=== PATIENT | female | born 1955 | race Caucasian/White ===

== ENCOUNTER 2023-05-03 18:29 | Inpatient (IN) | payer MEDICARE, OTHER ==
[~2023-05-03 18:29] MED LIST: Iopamidol-370 76% 500 ML MDV (1 ML CHARGE) ONE
[2023-05-03] MEDS ORDERED: Rocuronium Bromide 10 MG/ML (10ML VIAL) ONE (18:33)
[2023-05-03] MEDS ORDERED: CEFAZOLIN 2 GM VIAL ONE (18:39)
[2023-05-03 18:47] LABS: #Monocytes 0.6 thou/uL (0.11-0.59); #Neutrophils 6.6 thou/uL (1.40-6.50); %Basophils 0.1 % (0.0-1.0); %Lymphocytes 10.4 % (21.0-51.0); %Monocytes 7.1 % (0.0-10.0); Hematocrit 29.5 % (36.0-47.0); Hemoglobin 10.3 g/dL (12.0-16.0); Mean Corpuscular HGB CONC 34.9 g/dL (32.0-36.0); Mean Corpuscular Volume 71.6 fl (78.0-98.0); Mean Platelet Volume 8.5 fL (7.4-10.4); Platelet Count 314 10x3/uL (130-400); Red Blood Cell (RBC) Count 4.12 mill/uL (4.20-5.40)
[2023-05-03 18:58] LABS: INR-International Normal Ratio 0.9; PTT 27.3 sec (22.9-36.1); Prothrombin Time 12.5 sec (12.0-14.7)
[2023-05-03] MEDS ORDERED: Insulin Regular 300 UNITS/3 ML VIAL SC PRN (19:03)
[2023-05-03] MEDS ORDERED: Glucagon 1 MG/ML KIT IM PRN (19:03)
[2023-05-03] MEDS ORDERED: Ipratropium/Albuterol 3 ML NEB NEB PRN (19:03)
[2023-05-03] MEDS ORDERED: Ondansetron PF 4 MG/2 ML Vial IVP PRN (19:03)
[2023-05-03] MEDS ORDERED: hydrALAZINE 20 MG/ML VIAL SLOW IVP PRN (19:03)
[2023-05-03] MEDS ORDERED: Dextrose 50% Abboject 50 ML SYRINGE SLOW IVP PRN (19:03)
[2023-05-03] MEDS ORDERED: Dextrose 5% in Water 1,000 ML IV PRN (19:03)
[2023-05-03] MEDS ORDERED: Sodium Chloride 0.9% 1,000 ML IV SCH ×2 (19:15→22:45)
[2023-05-03 19:16] LABS: ALT (SGPT) 37 U/L (8-55); AST (SGOT) 44 U/L (5-34); Albumin 4.1 g/dL (3.4-4.8); Alkaline Phosphatase 55 U/L (40-110); Anion Gap 14 mmol/L (10-20); BUN (Urea Nitrogen) 8 mg/dL (9.8-20.1); Bilirubin, Total 0.4 mg/dL (0.2-1.2); Calc. Creatinine Clearance 0 mL/min (70-130); Calcium 8.6 mg/dL (7.8-10.44); Carbon Dioxide 23 mmol/L (23-31); Chloride 73 mmol/L (98-107); Estimated GFR 95; Globulin 3.2 g/dL (2.4-3.5); Glucose 162 mg/dL (80-115); Potassium 3.2 mmol/L (3.5-5.1); Protein, Total 7.3 g/dL (5.8-8.1)
[2023-05-03] MEDS ORDERED: Morphine 2 MG/ML VIAL SLOW IVP PRN ×2 (19:16→22:15)
[2023-05-03 19:17] LABS: Bacteria/HPF None Seen HPF (None Seen); Bilirubin Negative (Negative); Blood, Urine Negative (Negative); CAUTI Indications for Culture Alt mental st,lethar; Clarity Clear (Clear); Glucose, Urine (Dipstick) Normal (Negative); Ketone, Urine 10 mg/dL (Negative); Leukocyte Negative Leu/uL (Negative); Nitrite Negative (Negative); Protein, Urine (Dipstick) Negative (Neg-Trace); RBC/HPF 0-3 HPF (0-3); Squamous Epithelial None Seen HPF (0-3); Urobilinogen Normal mg/dL (Less than 2); WBC/HPF 0-3 HPF (0-3)
[2023-05-03 19:19] LABS: Urine Culture Reflex No No
[2023-05-03 19:20] LABS: Sodium 107 mmol/L (136-145)
[2023-05-03 19:23] LABS: Anisocytosis SLIGHT = 6-15 cells HPF (0-5); Burr Cells SLIGHT = 2-5 cells HPF (0-1); CellaVision Operator ID LAB.MJL; Hypochromia SLIGHT = 6-15 cells HPF (0-5); Microcytosis SLIGHT = 6-15 cells HPF (0-5); Ovalocytes SLIGHT = 2-5 cells HPF (0-1); Platelet Adequacy Comment Platelets Normal; Poikilocytosis SLIGHT = 6-15 cells HPF (0-5); Polychromasia SLIGHT = 2-3 cells HPF (0-2)
[2023-05-03] MEDS ORDERED: levETIRAcetam 500 MG/5 ML VIAL ONE (19:46)
[2023-05-03] MEDS ORDERED: Propofol 1,000 MG/100 ML VIAL IV ONE (19:54)
[2023-05-03 20:18] LABS: ALT (SGPT) 37 U/L (8-55); AST (SGOT) 44 U/L (5-34); Albumin 3.9 g/dL (3.4-4.8); Alkaline Phosphatase 52 U/L (40-110); Anion Gap 18 mmol/L (10-20); BUN (Urea Nitrogen) 7 mg/dL (9.8-20.1); Bilirubin, Total 0.5 mg/dL (0.2-1.2); Calc. Creatinine Clearance 0 mL/min (70-130); Calcium 8.6 mg/dL (7.8-10.44); Carbon Dioxide 21 mmol/L (23-31); Chloride 71 mmol/L (98-107); Estimated GFR 90; Glucose 160 mg/dL (80-115); Potassium 2.7 mmol/L (3.5-5.1); Protein, Total 6.9 g/dL (5.8-8.1)
[2023-05-03 20:23] LABS: Sodium 107 mmol/L (136-145)
[2023-05-03] MEDS ORDERED: Magnesium 2 GM/50 ML(in water) 2 GM in Premix Bag 1 BAG IVPB SCH (20:30)
[2023-05-03] MEDS ORDERED: Sodium Chloride 3% 250 ML IVPB SCH (20:45)
[2023-05-03 21:54] LABS: BUN (Urea Nitrogen) 6 mg/dL (9.8-20.1); Calc. Creatinine Clearance 0 mL/min (70-130); Calcium 6.9 mg/dL (7.8-10.44); Carbon Dioxide 18 mmol/L (23-31); Chloride 67 mmol/L (98-107); Estimated GFR 100; Glucose 129 mg/dL (80-115); Potassium 2.9 mmol/L (3.5-5.1); Sodium Less than 100 mmol/L (136-145)
[2023-05-03] MEDS ORDERED: Atropine Sulfate 1 mg/10 ml Syringe ONE (22:00)
[2023-05-03] MEDS ORDERED: CEFAZOLIN 2 GM in Sodium Chloride 0.9% 100 ML IVPB SCH (22:00)
[2023-05-03] MEDS ORDERED: CEFAZOLIN 1 GM VIAL SLOW IVP SCH (22:00)
[2023-05-03] MEDS ORDERED: Propofol BOLUS 1,000 MG/100 ML VIAL IV PRN (22:15)
[2023-05-03] MEDS ORDERED: DISCONTINUE PREVIOUS NARCOTIC PAIN MEDICATIONS AND BENZODIAZEPINES FS SCH (22:15)
[2023-05-03] MEDS ORDERED: Fentanyl BOLUS 250 ML IVPB PRN (22:15)
[2023-05-03] MEDS ORDERED: Propofol 1,000 MG/100 ML VIAL IV PRN (22:15)
[2023-05-03] MEDS ORDERED: Calcium Chloride 1 GM/10 ML Abboject SYRINGE ONE (22:17)
[2023-05-03] MEDS: Potassium Chloride 20 MEQ in Premix Bag 1 BAG IVPB SCH ×2 (22:43→23:43)
[2023-05-03] MEDS ORDERED: Sodium Chloride 3% 500 ML IVPB SCH (22:45)
[2023-05-03 22:56] LABS: Actual Bicarbonate (HCO3a) 21.9 mEq/L (22-28); Base Excess (BEa) -1.8 mEq/L (-2.0 to +3.0); CO2 Tension 33.2 mmHg (35.0-45.0); Calcium, Ionized (arterial) 1.38 mmol/L (1.12-1.30); Hematocrit-ABG 29 % (36.0-47.0); O2 Tension (PaO2), arterial 98.9 mmHg (> 80.0); Potassium - ABG Lab 2.86 mmol/L (3.70-5.30); pH, Arterial 7.437 (7.35-7.45)
[2023-05-03 22:57] LABS: Puncture Site RRA
[2023-05-03] MEDS ORDERED: Albumin 5% 250 ML ONE (22:59)
[2023-05-03] MEDS ORDERED: Calcium Chloride 1 GM/10 ML Abboject SYRINGE IVP SCH (23:00)
[2023-05-03 23:15] LABS: Phosphorus 2.2 mg/dL (2.3-4.7)
[2023-05-03 23:17] LABS: Acetaminophen Less than 10 mcg/mL (10.0-30.0); Alcohol Less than 10.0 mg/dL (Less than 10); Magnesium 1.4 mg/dL (1.6-2.6); Salicylate Less than 8.0 mg/dL (15.0-30.0)
[2023-05-03] MEDS ORDERED: Electrolyte Replacement Protocol 1 EACH FS PRN (23:23)
[2023-05-03 23:24] LABS: Anion Gap 16 mmol/L (10-20); BUN (Urea Nitrogen) 8 mg/dL (9.8-20.1); Calc. Creatinine Clearance 98 mL/min (70-130); Calcium 9.2 mg/dL (7.8-10.44); Carbon Dioxide 22 mmol/L (23-31); Chloride 76 mmol/L (98-107); Estimated GFR 96; Glucose 135 mg/dL (80-115); Potassium 2.8 mmol/L (3.5-5.1); Sodium 111 mmol/L (136-145)
[2023-05-03] MEDS: Famotidine/PF 20 mg/2ml Vial SLOW IVP SCH (23:26)
[2023-05-03] MEDS ORDERED: Magnesium Sulfate In Water 4 GM in Premix Bag 1 BAG IVPB SCH (23:59)
[2023-05-04 00:26] LABS: Amphetamine Not Detected (NotDetected); Barbiturates Screen Not Detected (NotDetected); Benzodiazepine Screen Not Detected (NotDetected); Cocaine Metabolite Screen Not Detected (NotDetected); Methadone Not Detected (NotDetected); Methamphetamine Not Detected (NotDetected); Opiate Screen Not Detected (NotDetected); Oxycodone Screen Not Detected (NotDetected); Phencyclidine (PCP) Not Detected (NotDetected); THC/Cannabinoid Screen Not Detected (NotDetected); Tricyclic Screen Not Detected (NotDetected)
[2023-05-04 01:35] LABS: Anion Gap 13 mmol/L (10-20); BUN (Urea Nitrogen) 7 mg/dL (9.8-20.1); Calc. Creatinine Clearance 105 mL/min (70-130); Calcium 9.4 mg/dL (7.8-10.44); Carbon Dioxide 22 mmol/L (23-31); Chloride 80 mmol/L (98-107); Estimated GFR 97; Glucose 124 mg/dL (80-115); Potassium 2.7 mmol/L (3.5-5.1)
[2023-05-04 01:38] LABS: Sodium 112 mmol/L (136-145)
[2023-05-04] MEDS: Potassium Chloride 20 MEQ in Premix Bag 1 BAG IVPB SCH ×2 (02:27→04:50)
[2023-05-04 03:34] LABS: #Neutrophils 7.5 thou/uL (1.40-6.50); %Basophils 0.1 % (0.0-1.0); %Lymphocytes 7.1 % (21.0-51.0); %Monocytes 10.5 % (0.0-10.0); %Neutrophils 82.1 % (42.0-75.0); Hematocrit 26.3 % (36.0-47.0); Hemoglobin 8.8 g/dL (12.0-16.0); Mean Corpuscular HGB CONC 33.5 g/dL (32.0-36.0); Mean Corpuscular Hemoglobin 24.9 pg (27.0-31.0); Mean Platelet Volume 8.6 fL (7.4-10.4); RBC Distribution Width 15.3 % (11.5-14.5); Red Blood Cell (RBC) Count 3.53 mill/uL (4.20-5.40); White Blood Cell (WBC) Count 9.1 10x3/uL (4.8-10.8)
[2023-05-04 03:44] LABS: Mean Corpuscular Volume 74.5 fl (78.0-98.0); Platelet Count 205 10x3/uL (130-400)
[2023-05-04 03:48] LABS: PTT 28.4 sec (22.9-36.1); Prothrombin Time 13.3 sec (12.0-14.7)
[2023-05-04 03:53] LABS: Anion Gap 15 mmol/L (10-20); BUN (Urea Nitrogen) 6 mg/dL (9.8-20.1); Calc. Creatinine Clearance 110 mL/min (70-130); Calcium 8.9 mg/dL (7.8-10.44); Carbon Dioxide 20 mmol/L (23-31); Chloride 80 mmol/L (98-107); Estimated GFR 98; Glucose 122 mg/dL (80-115); Magnesium 2.6 mg/dL (1.6-2.6)
[2023-05-04 03:54] LABS: Anion Gap 13 mmol/L (10-20); BUN (Urea Nitrogen) 7 mg/dL (9.8-20.1); Calc. Creatinine Clearance 103 mL/min (70-130); Calcium 8.9 mg/dL (7.8-10.44); Carbon Dioxide 22 mmol/L (23-31); Chloride 81 mmol/L (98-107); Estimated GFR 97; Glucose 124 mg/dL (80-115); Potassium 2.9 mmol/L (3.5-5.1)
[2023-05-04 04:04] LABS: Sodium 112 mmol/L (136-145); Sodium 113 mmol/L (136-145)
[2023-05-04] MEDS: CEFAZOLIN 2 GM in Sodium Chloride 0.9% 100 ML IVPB SCH ×3 (04:51→19:58)
[2023-05-04 06:45] LABS: Anion Gap 14 mmol/L (10-20); BUN (Urea Nitrogen) 7 mg/dL (9.8-20.1); Calc. Creatinine Clearance 97 mL/min (70-130); Calcium 8.7 mg/dL (7.8-10.44); Carbon Dioxide 21 mmol/L (23-31); Chloride 83 mmol/L (98-107); Estimated GFR 95; Glucose 105 mg/dL (80-115); Potassium 3.6 mmol/L (3.5-5.1)
[2023-05-04] MEDS ORDERED: Sodium Chloride 3% 500 ML IVPB SCH ×2 (06:45→07:30)
[2023-05-04 07:03] LABS: Sodium 114 mmol/L (136-145)
[2023-05-04] MEDS ORDERED: Hydrocortisone Sod Succ/PF 100 mg/2 ml Vial IVP SCH (07:15)
[2023-05-04 09:23] LABS: Chloride 87 mmol/L (98-107); Potassium 4.3 mmol/L (3.5-5.1)
[2023-05-04 09:24] LABS: Calcium 8.5 mg/dL (7.8-10.44); Glucose 102 mg/dL (80-115)
[2023-05-04 09:26] LABS: Anion Gap 13 mmol/L (10-20); Carbon Dioxide 21 mmol/L (23-31)
[2023-05-04 09:28] LABS: Calc. Creatinine Clearance 97 mL/min (70-130); Estimated GFR 95
[2023-05-04 09:29] LABS: BUN (Urea Nitrogen) 7 mg/dL (9.8-20.1)
[2023-05-04 09:36] LABS: Sodium 117 mmol/L (136-145)
[2023-05-04] MEDS: Famotidine/PF 20 mg/2ml Vial SLOW IVP SCH ×2 (09:42→19:59)
[2023-05-04] MEDS: levETIRAcetam 500 MG/5 ML VIAL SLOW IVP SCH ×2 (09:42→19:59)
[2023-05-04] MEDS ORDERED: Fentanyl CADD 100 ML ONE (10:26)
[2023-05-04] MEDS: Fentanyl CADD 100 ML IV SCH (10:30)
[2023-05-04] MEDS: Acetaminophen 650 MG/20.3 ML UDCUP PO SCH ×2 (11:57→17:22)
[2023-05-04 12:00] LABS: Anion Gap 13 mmol/L (10-20); BUN (Urea Nitrogen) 7 mg/dL (9.8-20.1); Calc. Creatinine Clearance 98 mL/min (70-130); Calcium 8.5 mg/dL (7.8-10.44); Carbon Dioxide 21 mmol/L (23-31); Chloride 88 mmol/L (98-107); Estimated GFR 96; Glucose 102 mg/dL (80-115); Potassium 4.2 mmol/L (3.5-5.1)
[2023-05-04 12:15] LABS: Sodium 118 mmol/L (136-145)
[2023-05-04 12:20] LABS: SARS-CoV-2 NAA Rapid Test DETECTED (NotDetected)
[2023-05-04] MEDS ORDERED: NOREPINEPHRINE 8 MG/250 ML-D5W 250 ML ONE (14:31)
[2023-05-04] MEDS ORDERED: Sodium Chloride 0.9% 1,000 ML IV SCH (14:45)
[2023-05-04 15:36] LABS: Actual Bicarbonate (HCO3a) 22.4 mEq/L (22-28); Base Excess (BEa) -1.8 mEq/L (-2.0 to +3.0); CO2 Tension 35.6 mmHg (35.0-45.0); Calcium, Ionized (arterial) 1.09 mmol/L (1.12-1.30); Carboxyhemoglobin (COHb) 0.4 gm% (0.0-3.0); Hematocrit-ABG 27 % (36.0-47.0); Hemoglobin (Hb) 9.2 g/dL (12.0-16.0); O2 Tension (PaO2), arterial 109.7 mmHg (> 80.0); Potassium - ABG Lab 3.17 mmol/L (3.70-5.30); Puncture Site RRA; pH, Arterial 7.416 (7.35-7.45)
[2023-05-04] MEDS ORDERED: NOREPINEPHRINE 8 MG/250 ML-D5W 250 ML IVPB SCH (16:15)
[2023-05-04 16:57] LABS: #Monocytes 1.2 thou/uL (0.11-0.59); #Neutrophils 8.3 thou/uL (1.40-6.50); %Monocytes 12.1 % (0.0-10.0); %Neutrophils 84.6 % (42.0-75.0); Hematocrit 24.9 % (36.0-47.0); Hemoglobin 8.4 g/dL (12.0-16.0); Mean Corpuscular HGB CONC 33.7 g/dL (32.0-36.0); Mean Corpuscular Volume 74.1 fl (78.0-98.0); Mean Platelet Volume 8.8 fL (7.4-10.4); Platelet Count 243 10x3/uL (130-400); RBC Distribution Width 15.9 % (11.5-14.5); Red Blood Cell (RBC) Count 3.36 mill/uL (4.20-5.40); White Blood Cell (WBC) Count 9.8 10x3/uL (4.8-10.8)
[2023-05-04] MEDS: Hydrocortisone Sod Succ/PF 100 mg/2 ml Vial IVP SCH (17:23)
[2023-05-04 17:26] LABS: Anion Gap 13 mmol/L (10-20); BUN (Urea Nitrogen) 6 mg/dL (9.8-20.1); Calc. Creatinine Clearance 94 mL/min (70-130); Calcium 8.2 mg/dL (7.8-10.44); Carbon Dioxide 21 mmol/L (23-31); Chloride 92 mmol/L (98-107); Estimated GFR 95; Glucose 148 mg/dL (80-115); Magnesium 2.1 mg/dL (1.6-2.6); Potassium 3.3 mmol/L (3.5-5.1); Sodium 123 mmol/L (136-145)
[2023-05-04 17:35] LABS: Phosphorus 1.5 mg/dL (2.3-4.7)
[2023-05-04] MEDS ORDERED: Calcium Chloride 1 GM/10 ML Abboject SYRINGE IVP SCH (17:45)
[2023-05-04] MEDS ORDERED: Potassium Phosphate 30 MMOL in Sodium Chloride 0.9% 250 ML 250 ML IVPB SCH (17:45)
[2023-05-04] MEDS: Sodium Chloride 0.9% 1,000 ML IV SCH (17:49)
[2023-05-04] MEDS: Senokot S 8.6-50 MG TAB PO SCH (19:59)
[2023-05-04 20:53] LABS: Sodium 123 mmol/L (136-145)
[2023-05-04 23:27] LABS: Anion Gap 13 mmol/L (10-20); BUN (Urea Nitrogen) 5 mg/dL (9.8-20.1); Calc. Creatinine Clearance 94 mL/min (70-130); Carbon Dioxide 21 mmol/L (23-31); Chloride 96 mmol/L (98-107); Estimated GFR 95; Glucose 140 mg/dL (80-115); Potassium 3.9 mmol/L (3.5-5.1); Sodium 126 mmol/L (136-145)
[2023-05-04] MEDS ORDERED: Dextrose 5% in Water 1,000 ML IV SCH (23:45)
[2023-05-05] MEDS: Acetaminophen 650 MG/20.3 ML UDCUP PO SCH ×4 (00:36→17:37)
[2023-05-05] MEDS: Hydrocortisone Sod Succ/PF 100 mg/2 ml Vial IVP SCH ×2 (00:37→11:58)
[2023-05-05] MEDS: Sodium Chloride 0.9% 1,000 ML IV SCH ×4 (01:02→22:27)
[2023-05-05 02:39] LABS: Anion Gap 12 mmol/L (10-20); BUN (Urea Nitrogen) 5 mg/dL (9.8-20.1); Calc. Creatinine Clearance 101 mL/min (70-130); Calcium 8.8 mg/dL (7.8-10.44); Carbon Dioxide 23 mmol/L (23-31); Chloride 97 mmol/L (98-107); Estimated GFR 96; Glucose 131 mg/dL (80-115); Potassium 3.9 mmol/L (3.5-5.1); Sodium 128 mmol/L (136-145)
[2023-05-05 04:42] LABS: #Monocytes 0.9 thou/uL (0.11-0.59); #Neutrophils 6.7 thou/uL (1.40-6.50); %Lymphocytes 4.3 % (21.0-51.0); %Neutrophils 84.3 % (42.0-75.0); Hematocrit 23.5 % (36.0-47.0); Hemoglobin 7.7 g/dL (12.0-16.0); Mean Corpuscular HGB CONC 32.8 g/dL (32.0-36.0); Mean Corpuscular Hemoglobin 24.7 pg (27.0-31.0); Mean Corpuscular Volume 75.3 fl (78.0-98.0); Mean Platelet Volume 8.9 fL (7.4-10.4); Platelet Count 170 10x3/uL (130-400); RBC Distribution Width 16.1 % (11.5-14.5); Red Blood Cell (RBC) Count 3.12 mill/uL (4.20-5.40); White Blood Cell (WBC) Count 7.9 10x3/uL (4.8-10.8)
[2023-05-05] MEDS: CEFAZOLIN 2 GM in Sodium Chloride 0.9% 100 ML IVPB SCH ×3 (05:00→20:45)
[2023-05-05 05:24] LABS: Anion Gap 13 mmol/L (10-20); BUN (Urea Nitrogen) 5 mg/dL (9.8-20.1); Calc. Creatinine Clearance 110 mL/min (70-130); Calcium 8.7 mg/dL (7.8-10.44); Carbon Dioxide 21 mmol/L (23-31); Chloride 95 mmol/L (98-107); Estimated GFR 98; Glucose 133 mg/dL (80-115); Magnesium 1.9 mg/dL (1.6-2.6); Phosphorus 2.1 mg/dL (2.3-4.7); Potassium 3.5 mmol/L (3.5-5.1); Sodium 125 mmol/L (136-145)
[2023-05-05] MEDS ORDERED: Sodium Chloride 0.45% 1,000 ML IV SCH (06:15)
[2023-05-05 07:27] LABS: Anion Gap 10 mmol/L (10-20); BUN (Urea Nitrogen) 6 mg/dL (9.8-20.1); Calc. Creatinine Clearance 98 mL/min (70-130); Calcium 8.5 mg/dL (7.8-10.44); Carbon Dioxide 22 mmol/L (23-31); Chloride 95 mmol/L (98-107); Estimated GFR 96; Glucose 134 mg/dL (80-115); Potassium 3.4 mmol/L (3.5-5.1); Sodium 124 mmol/L (136-145)
[2023-05-05] MEDS ORDERED: Potassium Phosphate 30 MMOL in Sodium Chloride 0.9% 250 ML 250 ML IVPB SCH (08:00)
[2023-05-05] MEDS ORDERED: Potassium Bicarbonate/Cit Ac 20 MEQ TAB PER TUBE SCH (08:00)
[2023-05-05] MEDS ORDERED: Propofol 1,000 MG/100 ML VIAL IV PRN (08:46)
[2023-05-05] MEDS ORDERED: Magnesium 2 GM/50 ML(in water) 2 GM in Premix Bag 1 BAG IVPB SCH (09:00)
[2023-05-05] MEDS: Polyethylene Glycol 3350 17 GM Packet PER TUBE SCH (09:30)
[2023-05-05] MEDS: levETIRAcetam 500 MG/5 ML VIAL SLOW IVP SCH ×2 (09:30→20:44)
[2023-05-05] MEDS: Senokot S 8.6-50 MG TAB PO SCH ×2 (09:31→20:44)
[2023-05-05] MEDS: Famotidine/PF 20 mg/2ml Vial SLOW IVP SCH ×2 (09:31→20:44)
[2023-05-05 09:44] LABS: Anion Gap 12 mmol/L (10-20); BUN (Urea Nitrogen) 7 mg/dL (9.8-20.1); Calc. Creatinine Clearance 105 mL/min (70-130); Calcium 8.8 mg/dL (7.8-10.44); Carbon Dioxide 23 mmol/L (23-31); Chloride 96 mmol/L (98-107); Estimated GFR 97; Glucose 116 mg/dL (80-115); Potassium 3.6 mmol/L (3.5-5.1); Sodium 127 mmol/L (136-145)
[2023-05-05 12:53] LABS: Anion Gap 11 mmol/L (10-20); BUN (Urea Nitrogen) 6 mg/dL (9.8-20.1); Calc. Creatinine Clearance 110 mL/min (70-130); Calcium 8.2 mg/dL (7.8-10.44); Carbon Dioxide 23 mmol/L (23-31); Chloride 95 mmol/L (98-107); Estimated GFR 98; Glucose 119 mg/dL (80-115); Potassium 3.9 mmol/L (3.5-5.1); Sodium 125 mmol/L (136-145)
[2023-05-05] MEDS: Fentanyl CADD 100 ML IV SCH (14:40)
[2023-05-05] MEDS ORDERED: Sodium Chloride 0.9% 500 ML IV SCH (17:15)
[2023-05-05 18:31] LABS: Sodium 128 mmol/L (136-145)
[2023-05-05 23:00] LABS: Sodium 128 mmol/L (136-145)
[2023-05-06] MEDS: Acetaminophen 650 MG/20.3 ML UDCUP PO SCH ×5 (01:25→23:26)
[2023-05-06] MEDS: Hydrocortisone Sod Succ/PF 100 mg/2 ml Vial IVP SCH (02:00)
[2023-05-06 02:04] LABS: Sodium 128 mmol/L (136-145)
[2023-05-06] MEDS: CEFAZOLIN 2 GM in Sodium Chloride 0.9% 100 ML IVPB SCH ×3 (04:57→20:56)
[2023-05-06 05:31] LABS: #Monocytes 0.5 thou/uL (0.11-0.59); #Neutrophils 3.8 thou/uL (1.40-6.50); %Eosinophils 0.2 % (0.0-10.0); %Monocytes 9.6 % (0.0-10.0); %Neutrophils 77.8 % (42.0-75.0); Hematocrit 28.8 % (36.0-47.0); Hemoglobin 9.3 g/dL (12.0-16.0); Mean Corpuscular HGB CONC 32.3 g/dL (32.0-36.0); Mean Corpuscular Hemoglobin 24.7 pg (27.0-31.0); Mean Corpuscular Volume 76.4 fl (78.0-98.0); Mean Platelet Volume 9.4 fL (7.4-10.4); Platelet Count 135 10x3/uL (130-400); RBC Distribution Width 16.9 % (11.5-14.5); Red Blood Cell (RBC) Count 3.77 mill/uL (4.20-5.40); White Blood Cell (WBC) Count 4.9 10x3/uL (4.8-10.8)
[2023-05-06 05:57] LABS: Anion Gap 9 mmol/L (10-20); BUN (Urea Nitrogen) 6 mg/dL (9.8-20.1); Calc. Creatinine Clearance 118 mL/min (70-130); Calcium 8.1 mg/dL (7.8-10.44); Carbon Dioxide 24 mmol/L (23-31); Chloride 100 mmol/L (98-107); Estimated GFR 100; Glucose 117 mg/dL (80-115); Potassium 3.5 mmol/L (3.5-5.1); Sodium 129 mmol/L (136-145)
[2023-05-06] MEDS ORDERED: Fentanyl CADD 100 ML ONE ×2 (05:57→23:38)
[2023-05-06] MEDS: Fentanyl CADD 100 ML IV SCH ×2 (05:58→23:40)
[2023-05-06] MEDS ORDERED: Potassium Phosphate 15 MMOL in Sodium Chloride 0.9% 100 ML IVPB SCH (06:15)
[2023-05-06] MEDS ORDERED: Potassium Chloride 20 MEQ in Premix Bag 1 BAG IVPB SCH (06:15)
[2023-05-06] MEDS ORDERED: Magnesium 2 GM/50 ML(in water) 2 GM in Premix Bag 1 BAG IVPB SCH (08:00)
[2023-05-06] MEDS: Polyethylene Glycol 3350 17 GM Packet PER TUBE SCH (08:00)
[2023-05-06] MEDS: Senokot S 8.6-50 MG TAB PO SCH ×2 (08:00→20:59)
[2023-05-06] MEDS: levETIRAcetam 500 MG/5 ML VIAL SLOW IVP SCH ×2 (08:00→20:59)
[2023-05-06] MEDS: Sodium Chloride 0.9% 1,000 ML IV SCH ×2 (08:00→18:12)
[2023-05-06] MEDS: Famotidine/PF 20 mg/2ml Vial SLOW IVP SCH ×2 (08:01→22:48)
[2023-05-06 09:41] LABS: Sodium 130 mmol/L (136-145)
[2023-05-06] MEDS: Propofol 1,000 MG/100 ML VIAL IV PRN ×2 (10:08→20:59)
[2023-05-07] MEDS: CEFAZOLIN 2 GM in Sodium Chloride 0.9% 100 ML IVPB SCH ×3 (04:05→20:35)
[2023-05-07] MEDS: Sodium Chloride 0.9% 1,000 ML IV SCH ×3 (04:06→20:11)
[2023-05-07 04:53] LABS: Anion Gap 10 mmol/L (10-20); BUN (Urea Nitrogen) 6 mg/dL (9.8-20.1); Calc. Creatinine Clearance 118 mL/min (70-130); Calcium 8.3 mg/dL (7.8-10.44); Carbon Dioxide 24 mmol/L (23-31); Chloride 104 mmol/L (98-107); Estimated GFR 99; Glucose 130 mg/dL (80-115); Potassium 3.9 mmol/L (3.5-5.1); Sodium 134 mmol/L (136-145)
[2023-05-07] MEDS: Acetaminophen 650 MG/20.3 ML UDCUP PO SCH (05:50)
[2023-05-07 06:16] LABS: #Eosinphils 0.1 thou/uL (0.0-0.7); #Monocytes 0.5 thou/uL (0.11-0.59); #Neutrophils 4.2 thou/uL (1.40-6.50); %Basophils 0.2 % (0.0-1.0); %Eosinophils 1.2 % (0.0-10.0); %Lymphocytes 19.3 % (21.0-51.0); %Monocytes 8.7 % (0.0-10.0); %Neutrophils 69.9 % (42.0-75.0); Hematocrit 24.3 % (36.0-47.0); Hemoglobin 7.6 g/dL (12.0-16.0); Mean Corpuscular HGB CONC 31.3 g/dL (32.0-36.0); Mean Corpuscular Hemoglobin 24.6 pg (27.0-31.0); Mean Corpuscular Volume 78.6 fl (78.0-98.0); Mean Platelet Volume 9.3 fL (7.4-10.4); Platelet Count 243 10x3/uL (130-400); RBC Distribution Width 17.5 % (11.5-14.5); Red Blood Cell (RBC) Count 3.09 mill/uL (4.20-5.40)
[2023-05-07 07:49] LABS: Actual Bicarbonate (HCO3a) 24.4 mEq/L (22-28); Base Excess (BEa) -1.4 mEq/L (-2.0 to +3.0); CO2 Tension 46.1 mmHg (35.0-45.0); Calcium, Ionized (arterial) 1.18 mmol/L (1.12-1.30); Carboxyhemoglobin (COHb) 0.8 gm% (0.0-3.0); Hematocrit-ABG 29 % (36.0-47.0); Hemoglobin (Hb) 9.8 g/dL (12.0-16.0); O2 Tension (PaO2), arterial 73.3 mmHg (> 80.0); Potassium - ABG Lab 4.16 mmol/L (3.70-5.30); pH, Arterial 7.342 (7.35-7.45)
[2023-05-07 07:50] LABS: ALV-art Gradient 118.625 mmHg (0-20); Puncture Site LRA
[2023-05-07] MEDS: Lorazepam 2 MG/ML VIAL SLOW IVP PRN ×2 (07:54→13:34)
[2023-05-07 07:57] LABS: Magnesium 2.1 mg/dL (1.6-2.6); Phosphorus 2.2 mg/dL (2.3-4.7)
[2023-05-07] MEDS: Fentanyl CADD 100 ML IV SCH (08:47)
[2023-05-07] MEDS: Senokot S 8.6-50 MG TAB PO SCH ×2 (09:43→21:35)
[2023-05-07] MEDS: levETIRAcetam 500 MG/5 ML VIAL SLOW IVP SCH ×2 (09:43→21:34)
[2023-05-07] MEDS: Famotidine/PF 20 mg/2ml Vial SLOW IVP SCH ×2 (09:43→21:34)
[2023-05-07] MEDS: Polyethylene Glycol 3350 17 GM Packet PER TUBE SCH (09:43)
[2023-05-07] MEDS: Hydrocortisone Sod Succ/PF 100 mg/2 ml Vial IVP SCH (10:00)
[2023-05-07] MEDS: Acetaminophen 500 MG TAB PER TUBE SCH ×3 (11:05→22:28)
[2023-05-07] MEDS: Propofol 1,000 MG/100 ML VIAL IV PRN (13:55)
[2023-05-07] MEDS: HumaLOG 300 UNITS/3 ML VIAL SC PRN (22:29)
[2023-05-08] MEDS: Fentanyl CADD 100 ML IV SCH (00:23)
[2023-05-08] MEDS: Propofol 1,000 MG/100 ML VIAL IV PRN (02:27)
[2023-05-08] MEDS: CEFAZOLIN 2 GM in Sodium Chloride 0.9% 100 ML IVPB SCH ×3 (04:11→19:28)
[2023-05-08] MEDS: Acetaminophen 500 MG TAB PER TUBE SCH ×4 (04:11→23:06)
[2023-05-08 04:36] LABS: #Eosinphils 0.2 thou/uL (0.0-0.7); #Monocytes 1.1 thou/uL (0.11-0.59); #Neutrophils 6.7 thou/uL (1.40-6.50); %Basophils 0.2 % (0.0-1.0); %Eosinophils 1.7 % (0.0-10.0); %Lymphocytes 11.3 % (21.0-51.0); %Monocytes 12.3 % (0.0-10.0); %Neutrophils 74.1 % (42.0-75.0); Hematocrit 23.3 % (36.0-47.0); Hemoglobin 7.3 g/dL (12.0-16.0); Mean Corpuscular HGB CONC 31.3 g/dL (32.0-36.0); Mean Corpuscular Hemoglobin 25.1 pg (27.0-31.0); Mean Corpuscular Volume 80.1 fl (78.0-98.0); Mean Platelet Volume 9.3 fL (7.4-10.4); Platelet Count 272 10x3/uL (130-400); RBC Distribution Width 17.9 % (11.5-14.5); Red Blood Cell (RBC) Count 2.91 mill/uL (4.20-5.40); White Blood Cell (WBC) Count 9.1 10x3/uL (4.8-10.8)
[2023-05-08 06:29] LABS: ALT (SGPT) 44 U/L (8-55); AST (SGOT) 47 U/L (5-34); Albumin 2.7 g/dL (3.4-4.8); Alkaline Phosphatase 99 U/L (40-110); Anion Gap 12 mmol/L (10-20); BUN (Urea Nitrogen) 8 mg/dL (9.8-20.1); Bilirubin, Total 0.3 mg/dL (0.2-1.2); Calc. Creatinine Clearance 130 mL/min (70-130); Calcium 8.7 mg/dL (7.8-10.44); Carbon Dioxide 27 mmol/L (23-31); Chloride 104 mmol/L (98-107); Estimated GFR 100; Globulin 2.8 g/dL (2.4-3.5); Glucose 135 mg/dL (80-115); Potassium 3.6 mmol/L (3.5-5.1); Protein, Total 5.5 g/dL (5.8-8.1); Sodium 139 mmol/L (136-145)
[2023-05-08 07:40] LABS: Actual Bicarbonate (HCO3a) 29.1 mEq/L (22-28); Base Excess (BEa) 3.2 mEq/L (-2.0 to +3.0); CO2 Tension 52.4 mmHg (35.0-45.0); Calcium, Ionized (arterial) 1.18 mmol/L (1.12-1.30); Carboxyhemoglobin (COHb) 0.7 gm% (0.0-3.0); Hematocrit-ABG 24 % (36.0-47.0); Hemoglobin (Hb) 8.1 g/dL (12.0-16.0); O2 Tension (PaO2), arterial 73.9 mmHg (> 80.0); pH, Arterial 7.363 (7.35-7.45)
[2023-05-08 07:43] LABS: Puncture Site LRA
[2023-05-08] MEDS: Polyethylene Glycol 3350 17 GM Packet PER TUBE SCH (09:51)
[2023-05-08] MEDS: levETIRAcetam 500 MG/5 ML VIAL SLOW IVP SCH ×2 (09:51→20:33)
[2023-05-08] MEDS: Sodium Chloride 0.9% 1,000 ML IV SCH ×2 (09:51→23:06)
[2023-05-08] MEDS: Famotidine/PF 20 mg/2ml Vial SLOW IVP SCH ×2 (09:51→20:33)
[2023-05-08] MEDS: Senokot S 8.6-50 MG TAB PO SCH ×2 (09:51→20:34)
[2023-05-08] MEDS: Hydrocortisone Sod Succ/PF 100 mg/2 ml Vial IVP SCH (10:17)
[2023-05-09] MEDS: CEFAZOLIN 2 GM in Sodium Chloride 0.9% 100 ML IVPB SCH ×3 (04:30→20:04)
[2023-05-09] MEDS: Acetaminophen 500 MG TAB PER TUBE SCH ×4 (04:31→23:54)
[2023-05-09] MEDS: Fentanyl CADD 100 ML IV SCH (04:31)
[2023-05-09 05:06] LABS: #Eosinphils 0.1 thou/uL (0.0-0.7); #Monocytes 0.9 thou/uL (0.11-0.59); #Neutrophils 5.4 thou/uL (1.40-6.50); %Basophils 0.3 % (0.0-1.0); %Eosinophils 1.1 % (0.0-10.0); %Lymphocytes 14.1 % (21.0-51.0); %Monocytes 12.1 % (0.0-10.0); %Neutrophils 71.5 % (42.0-75.0); Hematocrit 22.3 % (36.0-47.0); Hemoglobin 7.1 g/dL (12.0-16.0); Mean Corpuscular HGB CONC 31.8 g/dL (32.0-36.0); Mean Corpuscular Hemoglobin 25.5 pg (27.0-31.0); Mean Corpuscular Volume 80.2 fl (78.0-98.0); Mean Platelet Volume 9.2 fL (7.4-10.4); Platelet Count 281 10x3/uL (130-400); RBC Distribution Width 18.1 % (11.5-14.5); Red Blood Cell (RBC) Count 2.78 mill/uL (4.20-5.40); White Blood Cell (WBC) Count 7.5 10x3/uL (4.8-10.8)
[2023-05-09 05:51] LABS: ALT (SGPT) 38 U/L (8-55); AST (SGOT) 37 U/L (5-34); Albumin 2.6 g/dL (3.4-4.8); Alkaline Phosphatase 94 U/L (40-110); Anion Gap 14 mmol/L (10-20); BUN (Urea Nitrogen) 16 mg/dL (9.8-20.1); Bilirubin, Total 0.3 mg/dL (0.2-1.2); Calc. Creatinine Clearance 136 mL/min (70-130); Calcium 8.6 mg/dL (7.8-10.44); Carbon Dioxide 28 mmol/L (23-31); Chloride 104 mmol/L (98-107); Estimated GFR 101; Globulin 2.9 g/dL (2.4-3.5); Glucose 124 mg/dL (80-115); Protein, Total 5.5 g/dL (5.8-8.1); Sodium 142 mmol/L (136-145)
[2023-05-09] MEDS: hydrALAZINE 20 MG/ML VIAL SLOW IVP PRN ×4 (07:05→20:03)
[2023-05-09 07:33] LABS: Actual Bicarbonate (HCO3a) 31.3 mEq/L (22-28); Base Excess (BEa) 5.9 mEq/L (-2.0 to +3.0); CO2 Tension 50.7 mmHg (35.0-45.0); Calcium, Ionized (arterial) 1.18 mmol/L (1.12-1.30); Carboxyhemoglobin (COHb) 0.8 gm% (0.0-3.0); Hematocrit-ABG 24 % (36.0-47.0); Hemoglobin (Hb) 8.2 g/dL (12.0-16.0); O2 Tension (PaO2), arterial 74.4 mmHg (> 80.0); Potassium - ABG Lab 3.87 mmol/L (3.70-5.30); pH, Arterial 7.409 (7.35-7.45)
[2023-05-09 07:34] LABS: ALV-art Gradient 111.775 mmHg (0-20); Puncture Site RRA
[2023-05-09] MEDS: Famotidine/PF 20 mg/2ml Vial SLOW IVP SCH ×2 (07:52→20:03)
[2023-05-09] MEDS: levETIRAcetam 500 MG/5 ML VIAL SLOW IVP SCH ×2 (07:53→20:04)
[2023-05-09] MEDS: Senokot S 8.6-50 MG TAB PO SCH ×2 (07:53→20:04)
[2023-05-09] MEDS: Polyethylene Glycol 3350 17 GM Packet PER TUBE SCH (08:53)
[2023-05-09] MEDS: Amlodipine 5 MG TAB PER TUBE SCH (08:53)
[2023-05-09] MEDS: HumaLOG 300 UNITS/3 ML VIAL SC PRN ×2 (10:57→17:01)
[2023-05-09] MEDS ORDERED: Levothyroxine 150 MCG TAB PO SCH (11:00)
[2023-05-09] MEDS ORDERED: Furosemide 20 MG/2 ML VIAL SLOW IVP SCH (14:15)
[2023-05-09] MEDS: Labetalol HCl 100 MG/20 ML VIAL SLOW IVP PRN (21:02)
[2023-05-09] MEDS: Lorazepam 2 MG/ML VIAL SLOW IVP PRN (21:29)
[2023-05-10] MEDS: Labetalol HCl 100 MG/20 ML VIAL SLOW IVP PRN ×2 (01:49→06:16)
[2023-05-10] MEDS: CEFAZOLIN 2 GM in Sodium Chloride 0.9% 100 ML IVPB SCH ×3 (03:09→20:10)
[2023-05-10] MEDS: hydrALAZINE 20 MG/ML VIAL SLOW IVP PRN ×3 (03:09→22:35)
[2023-05-10 04:11] LABS: #Monocytes 1.1 thou/uL (0.11-0.59); #Neutrophils 3.6 thou/uL (1.40-6.50); %Basophils 0.2 % (0.0-1.0); %Lymphocytes 12.5 % (21.0-51.0); %Monocytes 19.2 % (0.0-10.0); %Neutrophils 66.5 % (42.0-75.0); Hematocrit 22.3 % (36.0-47.0); Mean Corpuscular HGB CONC 31.4 g/dL (32.0-36.0); Mean Corpuscular Hemoglobin 24.8 pg (27.0-31.0); Mean Corpuscular Volume 79.1 fl (78.0-98.0); Mean Platelet Volume 9.5 fL (7.4-10.4); Platelet Count 308 10x3/uL (130-400); RBC Distribution Width 18.1 % (11.5-14.5); Red Blood Cell (RBC) Count 2.82 mill/uL (4.20-5.40); White Blood Cell (WBC) Count 5.5 10x3/uL (4.8-10.8)
[2023-05-10 04:40] LABS: ALT (SGPT) 41 U/L (8-55); AST (SGOT) 52 U/L (5-34); Albumin 2.9 g/dL (3.4-4.8); Alkaline Phosphatase 108 U/L (40-110); Anion Gap 15 mmol/L (10-20); BUN (Urea Nitrogen) 21 mg/dL (9.8-20.1); Bilirubin, Total 0.3 mg/dL (0.2-1.2); Calc. Creatinine Clearance 120 mL/min (70-130); Calcium 9.2 mg/dL (7.8-10.44); Carbon Dioxide 31 mmol/L (23-31); Chloride 100 mmol/L (98-107); Estimated GFR 98; Globulin 3.1 g/dL (2.4-3.5); Glucose 129 mg/dL (80-115); Potassium 3.9 mmol/L (3.5-5.1); Sodium 142 mmol/L (136-145)
[2023-05-10] MEDS: Acetaminophen 500 MG TAB PER TUBE SCH ×4 (06:15→22:14)
[2023-05-10] MEDS: Levothyroxine 150 MCG TAB PO SCH (06:16)
[2023-05-10 08:07] LABS: Actual Bicarbonate (HCO3a) 36.1 mEq/L (22-28); Base Excess (BEa) 11.3 mEq/L (-2.0 to +3.0); CO2 Tension 50.5 mmHg (35.0-45.0); Calcium, Ionized (arterial) 1.17 mmol/L (1.12-1.30); Carboxyhemoglobin (COHb) 0.6 gm% (0.0-3.0); Hematocrit-ABG 24 % (36.0-47.0); O2 Tension (PaO2), arterial 91.2 mmHg (> 80.0); Potassium - ABG Lab 3.76 mmol/L (3.70-5.30); pH, Arterial 7.472 (7.35-7.45)
[2023-05-10] MEDS: Senokot S 8.6-50 MG TAB PO SCH ×2 (08:11→20:10)
[2023-05-10] MEDS: Amlodipine 5 MG TAB PER TUBE SCH (08:11)
[2023-05-10 08:12] LABS: ALV-art Gradient 95.225 mmHg (0-20); Puncture Site RRA
[2023-05-10] MEDS: Famotidine/PF 20 mg/2ml Vial SLOW IVP SCH ×2 (08:12→20:09)
[2023-05-10] MEDS: Polyethylene Glycol 3350 17 GM Packet PER TUBE SCH (08:12)
[2023-05-10] MEDS: levETIRAcetam 500 MG/5 ML VIAL SLOW IVP SCH ×2 (08:12→20:10)
[2023-05-10] MEDS ORDERED: Lidocaine 1% (PF) 30 ML VIAL ONE (10:32)
[2023-05-10] MEDS ORDERED: Iopamidol 370 76% 100 ML VIAL ONE (12:49)
[2023-05-10 20:54] LABS: Hematocrit 24.8 % (36.0-47.0); Hemoglobin 7.9 g/dL (12.0-16.0); Platelet Count 306 10x3/uL (130-400)
[2023-05-11] MEDS: CEFAZOLIN 2 GM in Sodium Chloride 0.9% 100 ML IVPB SCH ×3 (03:53→21:17)
[2023-05-11] MEDS: Acetaminophen 500 MG TAB PER TUBE SCH ×4 (03:53→22:59)
[2023-05-11 04:35] LABS: #Monocytes 1.4 thou/uL (0.11-0.59); #Neutrophils 5.4 thou/uL (1.40-6.50); %Basophils 0.2 % (0.0-1.0); %Eosinophils 0.1 % (0.0-10.0); %Lymphocytes 13.2 % (21.0-51.0); %Monocytes 16.9 % (0.0-10.0); %Neutrophils 65.1 % (42.0-75.0); Hematocrit 23.6 % (36.0-47.0); Hemoglobin 7.6 g/dL (12.0-16.0); Mean Corpuscular HGB CONC 32.2 g/dL (32.0-36.0); Mean Corpuscular Hemoglobin 25.2 pg (27.0-31.0); Mean Corpuscular Volume 78.4 fl (78.0-98.0); Mean Platelet Volume 9.1 fL (7.4-10.4); Platelet Count 295 10x3/uL (130-400); RBC Distribution Width 18.1 % (11.5-14.5); Red Blood Cell (RBC) Count 3.01 mill/uL (4.20-5.40); White Blood Cell (WBC) Count 8.4 10x3/uL (4.8-10.8)
[2023-05-11] MEDS: HumaLOG 300 UNITS/3 ML VIAL SC PRN (04:55)
[2023-05-11] MEDS: Levothyroxine 150 MCG TAB PO SCH (05:00)
[2023-05-11 05:15] LABS: ALT (SGPT) 58 U/L (8-55); AST (SGOT) 74 U/L (5-34); Albumin 2.9 g/dL (3.4-4.8); Alkaline Phosphatase 110 U/L (40-110); Anion Gap 15 mmol/L (10-20); BUN (Urea Nitrogen) 28 mg/dL (9.8-20.1); Bilirubin, Total 0.3 mg/dL (0.2-1.2); Calc. Creatinine Clearance 127 mL/min (70-130); Carbon Dioxide 31 mmol/L (23-31); Chloride 100 mmol/L (98-107); Estimated GFR 99; Globulin 2.8 g/dL (2.4-3.5); Glucose 147 mg/dL (80-115); Potassium 3.5 mmol/L (3.5-5.1); Protein, Total 5.7 g/dL (5.8-8.1); Sodium 142 mmol/L (136-145)
[2023-05-11] MEDS ORDERED: Fentanyl CADD 100 ML ONE (06:13)
[2023-05-11] MEDS: Fentanyl CADD 100 ML IV SCH (06:16)
[2023-05-11] MEDS: Famotidine/PF 20 mg/2ml Vial SLOW IVP SCH ×2 (07:47→21:17)
[2023-05-11] MEDS: Amlodipine 5 MG TAB PER TUBE SCH (07:47)
[2023-05-11] MEDS: Polyethylene Glycol 3350 17 GM Packet PER TUBE SCH (07:47)
[2023-05-11] MEDS: Senokot S 8.6-50 MG TAB PO SCH ×2 (07:47→21:18)
[2023-05-11] MEDS: levETIRAcetam 500 MG/5 ML VIAL SLOW IVP SCH ×2 (07:47→21:18)
[2023-05-11] MEDS ORDERED: Potassium Chloride 20 MEQ TAB PO SCH (08:00)
[2023-05-11] MEDS: Lorazepam 2 MG/ML VIAL SLOW IVP PRN (08:34)
[2023-05-11] MEDS: Labetalol HCl 100 MG/20 ML VIAL SLOW IVP PRN ×2 (13:32→23:02)
[2023-05-11] MEDS: hydrALAZINE 20 MG/ML VIAL SLOW IVP PRN ×2 (15:47→19:35)
[2023-05-12] MEDS: Acetaminophen 500 MG TAB PER TUBE SCH ×4 (03:50→21:40)
[2023-05-12] MEDS: CEFAZOLIN 2 GM in Sodium Chloride 0.9% 100 ML IVPB SCH ×3 (03:50→19:54)
[2023-05-12 05:13] LABS: Hematocrit 25.2 % (36.0-47.0); Mean Corpuscular HGB CONC 31.7 g/dL (32.0-36.0); Mean Corpuscular Hemoglobin 25.6 pg (27.0-31.0); Mean Corpuscular Volume 80.5 fl (78.0-98.0); Platelet Count 324 10x3/uL (130-400); RBC Distribution Width 18.1 % (11.5-14.5); Red Blood Cell (RBC) Count 3.13 mill/uL (4.20-5.40); White Blood Cell (WBC) Count 8.4 10x3/uL (4.8-10.8)
[2023-05-12 05:18] LABS: Delete Auto Diff?? YES; Manual Diff?? YES
[2023-05-12] MEDS: Levothyroxine 150 MCG TAB PO SCH (05:32)
[2023-05-12 05:41] LABS: Anion Gap 13 mmol/L (10-20); BUN (Urea Nitrogen) 29 mg/dL (9.8-20.1); Calc. Creatinine Clearance 130 mL/min (70-130); Calcium 8.8 mg/dL (7.8-10.44); Carbon Dioxide 31 mmol/L (23-31); Chloride 102 mmol/L (98-107); Estimated GFR 100; Glucose 129 mg/dL (80-115); Potassium 3.7 mmol/L (3.5-5.1); Sodium 142 mmol/L (136-145)
[2023-05-12 06:29] LABS: Anisocytosis SLIGHT = 6-15 cells HPF (0-5); Burr Cells SLIGHT = 2-5 cells HPF (0-1); CellaVision Operator ID LAB.JMM; Elliptocytes SLIGHT = 2-5 cells HPF (0-1); Eosinophils 1 % (0-10); Lymphocytes 5 % (21-51); Macrocytosis SLIGHT = 6-15 cells HPF (0-5); Monocytes 15 % (0-10); Neutrophil 79 % (42-75); Platelet Adequacy Comment Platelets Normal; Polychromasia SLIGHT = 2-3 cells HPF (0-2); Total Cell Count 100
[2023-05-12] MEDS: hydrALAZINE 20 MG/ML VIAL SLOW IVP PRN ×2 (06:42→19:53)
[2023-05-12] MEDS: Senokot S 8.6-50 MG TAB PO SCH ×2 (08:13→19:55)
[2023-05-12] MEDS: Famotidine/PF 20 mg/2ml Vial SLOW IVP SCH ×2 (08:13→19:54)
[2023-05-12] MEDS: levETIRAcetam 500 MG/5 ML VIAL SLOW IVP SCH ×2 (08:13→19:54)
[2023-05-12] MEDS: Polyethylene Glycol 3350 17 GM Packet PER TUBE SCH (08:13)
[2023-05-12] MEDS: Amlodipine 5 MG TAB PER TUBE SCH (08:14)
[2023-05-12] MEDS ORDERED: Furosemide 20 MG/2 ML VIAL SLOW IVP SCH (08:15)
[2023-05-12] MEDS ORDERED: Labetalol HCl 100 MG TAB PO SCH (09:00)
[2023-05-12] MEDS: Labetalol HCl 100 MG/20 ML VIAL SLOW IVP PRN (11:43)
[2023-05-12] MEDS: Labetalol HCl 100 MG TAB PO SCH ×2 (13:20→21:40)
[2023-05-13] MEDS: Fentanyl CADD 100 ML IV SCH (03:19)
[2023-05-13] MEDS: CEFAZOLIN 2 GM in Sodium Chloride 0.9% 100 ML IVPB SCH (03:25)
[2023-05-13] MEDS: Acetaminophen 500 MG TAB PER TUBE SCH (04:17)
[2023-05-13] MEDS: Labetalol HCl 100 MG TAB PO SCH ×3 (05:05→22:35)
[2023-05-13] MEDS: Levothyroxine 150 MCG TAB PO SCH (05:05)
[2023-05-13 06:03] LABS: #Eosinphils 0.1 thou/uL (0.0-0.7); #Monocytes 1.1 thou/uL (0.11-0.59); #Neutrophils 6.9 thou/uL (1.40-6.50); %Basophils 0.4 % (0.0-1.0); %Lymphocytes 12.2 % (21.0-51.0); %Monocytes 11.1 % (0.0-10.0); %Neutrophils 70.6 % (42.0-75.0); Hematocrit 26.6 % (36.0-47.0); Hemoglobin 8.4 g/dL (12.0-16.0); Mean Corpuscular HGB CONC 31.6 g/dL (32.0-36.0); Mean Corpuscular Hemoglobin 25.3 pg (27.0-31.0); Mean Corpuscular Volume 80.1 fl (78.0-98.0); Mean Platelet Volume 9.8 fL (7.4-10.4); Platelet Count 306 10x3/uL (130-400); RBC Distribution Width 18.4 % (11.5-14.5); Red Blood Cell (RBC) Count 3.32 mill/uL (4.20-5.40); White Blood Cell (WBC) Count 9.8 10x3/uL (4.8-10.8)
[2023-05-13 07:46] LABS: Actual Bicarbonate (HCO3a) 30.3 mEq/L (22-28); Base Excess (BEa) 6.7 mEq/L (-2.0 to +3.0); CO2 Tension 39.6 mmHg (35.0-45.0); Calcium, Ionized (arterial) 1.16 mmol/L (1.12-1.30); Hematocrit-ABG 26 % (36.0-47.0); O2 Tension (PaO2), arterial 89.3 mmHg (> 80.0); Potassium - ABG Lab 3.59 mmol/L (3.70-5.30); pH, Arterial 7.502 (7.35-7.45)
[2023-05-13 07:48] LABS: Puncture Site RRA
[2023-05-13] MEDS: Amlodipine 5 MG TAB PER TUBE SCH (08:04)
[2023-05-13] MEDS: Polyethylene Glycol 3350 17 GM Packet PER TUBE SCH (08:04)
[2023-05-13] MEDS: levETIRAcetam 500 MG/5 ML VIAL SLOW IVP SCH ×2 (08:04→21:58)
[2023-05-13] MEDS: Senokot S 8.6-50 MG TAB PO SCH ×2 (08:05→22:34)
[2023-05-13] MEDS: Famotidine/PF 20 mg/2ml Vial SLOW IVP SCH (08:05)
[2023-05-13 08:55] LABS: Phosphorus 3.6 mg/dL (2.3-4.7)
[2023-05-13] MEDS: hydrALAZINE 20 MG/ML VIAL SLOW IVP PRN (08:59)
[2023-05-13] MEDS ORDERED: Magnesium 2 GM/50 ML(in water) 2 GM in Premix Bag 1 BAG IVPB SCH (09:30)
[2023-05-13] MEDS: Acetaminophen 650 MG Suppository PR SCH ×3 (10:43→22:02)
[2023-05-13] MEDS: Labetalol HCl 100 MG/20 ML VIAL SLOW IVP PRN ×2 (10:44→18:46)
[2023-05-13] MEDS ORDERED: niCARdipine 40MG In NaCl 40 MG/200 ML BAG IVPB SCH (12:30)
[2023-05-13] MEDS: niCARdipine 25 MG in Sodium Chloride 0.9% 250 ML 250 ML IVPB SCH (13:18)
[2023-05-13] MEDS ORDERED: Famotidine 20 MG TAB PER TUBE SCH (21:00)
[2023-05-13] MEDS ORDERED: Labetalol HCl 100 MG/20 ML VIAL SLOW IVP PRN (22:27)
[2023-05-14] MEDS: niCARdipine 25 MG in Sodium Chloride 0.9% 250 ML 250 ML IVPB SCH ×6 (02:24→23:42)
[2023-05-14] MEDS: Acetaminophen 650 MG Suppository PR SCH ×4 (04:34→21:25)
[2023-05-14] MEDS: Levothyroxine 150 MCG TAB PO SCH (05:13)
[2023-05-14] MEDS: Amlodipine 5 MG TAB PER TUBE SCH (08:32)
[2023-05-14] MEDS: Famotidine/PF 20 mg/2ml Vial SLOW IVP SCH ×2 (08:32→20:23)
[2023-05-14] MEDS: Senokot S 8.6-50 MG TAB PO SCH ×2 (08:33→20:24)
[2023-05-14] MEDS: levETIRAcetam 500 MG/5 ML VIAL SLOW IVP SCH ×2 (08:33→20:23)
[2023-05-14] MEDS: Polyethylene Glycol 3350 17 GM Packet PER TUBE SCH (08:33)
[2023-05-14 09:31] LABS: Anion Gap 13 mmol/L (10-20); BUN (Urea Nitrogen) 18 mg/dL (9.8-20.1); Calc. Creatinine Clearance 142 mL/min (70-130); Calcium 8.5 mg/dL (7.8-10.44); Carbon Dioxide 27 mmol/L (23-31); Chloride 105 mmol/L (98-107); Estimated GFR 103; Glucose 97 mg/dL (80-115); Potassium 3.1 mmol/L (3.5-5.1); Sodium 142 mmol/L (136-145)
[2023-05-14] MEDS: Potassium Chloride 20 MEQ in Premix Bag 1 BAG IVPB SCH ×2 (12:46→14:36)
[2023-05-14 15:48] LABS: Anion Gap 17 mmol/L (10-20); Calcium 8.5 mg/dL (7.8-10.44); Carbon Dioxide 20 mmol/L (23-31); Chloride 106 mmol/L (98-107); Potassium 4.6 mmol/L (3.5-5.1); Sodium 138 mmol/L (136-145)
[2023-05-14 16:18] LABS: Glucose 80 mg/dL (80-115)
[2023-05-14 16:22] LABS: Calc. Creatinine Clearance 139 mL/min (70-130); Estimated GFR 102
[2023-05-14 16:23] LABS: BUN (Urea Nitrogen) 15 mg/dL (9.8-20.1)
[2023-05-14] MEDS ORDERED: Magnesium 2 GM/50 ML(in water) 2 GM in Premix Bag 1 BAG IVPB SCH (23:00)
[2023-05-15] MEDS: Acetaminophen 650 MG Suppository PR SCH ×2 (04:18→13:34)
[2023-05-15] MEDS: Levothyroxine 150 MCG TAB PO SCH (06:09)
[2023-05-15] MEDS: Famotidine/PF 20 mg/2ml Vial SLOW IVP SCH ×2 (09:24→20:54)
[2023-05-15] MEDS: levETIRAcetam 500 MG/5 ML VIAL SLOW IVP SCH ×2 (09:24→20:54)
[2023-05-15] MEDS: Amantadine HCl 100 mg Capsule PO SCH ×2 (09:25→20:54)
[2023-05-15] MEDS: Senokot S 8.6-50 MG TAB PO SCH ×2 (09:25→20:55)
[2023-05-15] MEDS: Polyethylene Glycol 3350 17 GM Packet PER TUBE SCH (09:25)
[2023-05-15] MEDS: Amlodipine 5 MG TAB PER TUBE SCH (09:25)
[2023-05-15] MEDS: hydrALAZINE 20 MG/ML VIAL SLOW IVP PRN (10:19)
[2023-05-15] MEDS ORDERED: Acetaminophen 650 MG Suppository PR PRN (13:18)
[2023-05-15] MEDS: Labetalol HCl 100 MG/20 ML VIAL SLOW IVP PRN ×2 (13:28→23:23)
[2023-05-15] MEDS ORDERED: Lidocaine 1% w/Epinephrine 1:100K 20 ML VIAL IJ SCH (16:30)
[2023-05-15] MEDS ORDERED: Midazolam HCl 2 mg/2 ml Vial SLOW IVP SCH (16:30)
[2023-05-15] MEDS ORDERED: Vecuronium 10 MG VIAL IVP SCH (16:30)
[2023-05-15] MEDS ORDERED: CEFAZOLIN 2 GM in Sodium Chloride 0.9% 100 ML IVPB SCH (16:30)
[2023-05-16] MEDS: Labetalol HCl 100 MG/20 ML VIAL SLOW IVP PRN (05:03)
[2023-05-16] MEDS: Levothyroxine 150 MCG TAB PO SCH (05:06)
[2023-05-16] MEDS: hydrALAZINE 20 MG/ML VIAL SLOW IVP PRN (05:33)
[2023-05-16] MEDS: Polyethylene Glycol 3350 17 GM Packet PER TUBE SCH (08:30)
[2023-05-16] MEDS: levETIRAcetam 500 MG/5 ML VIAL SLOW IVP SCH ×2 (10:02→21:21)
[2023-05-16] MEDS: Famotidine/PF 20 mg/2ml Vial SLOW IVP SCH ×2 (10:10→21:21)
[2023-05-16] MEDS: Amlodipine 5 MG TAB PER TUBE SCH (10:48)
[2023-05-16] MEDS: Senokot S 8.6-50 MG TAB PO SCH ×2 (10:49→21:21)
[2023-05-16] MEDS: Amantadine HCl 100 mg Capsule PO SCH ×2 (11:40→21:21)
[2023-05-17 05:53] LABS: Anion Gap 17 mmol/L (10-20); BUN (Urea Nitrogen) 18 mg/dL (9.8-20.1); Calc. Creatinine Clearance 122 mL/min (70-130); Calcium 8.6 mg/dL (7.8-10.44); Carbon Dioxide 22 mmol/L (23-31); Chloride 103 mmol/L (98-107); Estimated GFR 101; Glucose 91 mg/dL (80-115); Potassium 3.4 mmol/L (3.5-5.1); Sodium 139 mmol/L (136-145)
[2023-05-17] MEDS: Levothyroxine 150 MCG TAB PO SCH (05:53)
[2023-05-17] MEDS ORDERED: Potassium Chloride 20 MEQ TAB PO SCH (08:00)
[2023-05-17] MEDS ORDERED: Potassium Bicarbonate/Cit Ac 20 MEQ TAB PO SCH ×2 (08:00→21:00)
[2023-05-17] MEDS: Amlodipine 5 MG TAB PO SCH (08:09)
[2023-05-17] MEDS: Polyethylene Glycol 3350 17 GM Packet PER TUBE SCH (08:09)
[2023-05-17] MEDS: Famotidine/PF 20 mg/2ml Vial SLOW IVP SCH (08:09)
[2023-05-17] MEDS: Senokot S 8.6-50 MG TAB PO SCH ×2 (08:09→19:43)
[2023-05-17] MEDS: levETIRAcetam 500 MG/5 ML VIAL SLOW IVP SCH (08:12)
[2023-05-17] MEDS ORDERED: Potassium Chloride 20 MEQ in Premix Bag 1 BAG IVPB SCH (08:30)
[2023-05-17] MEDS: Famotidine 20 MG TAB PO SCH ×2 (08:51→19:43)
[2023-05-17] MEDS: levETIRAcetam 500 MG TAB PO SCH ×2 (08:51→19:43)
[2023-05-17 14:30] LABS: Potassium 3.5 mmol/L (3.5-5.1)
[2023-05-18] MEDS: Levothyroxine 150 MCG TAB PO SCH (05:17)
[2023-05-18 06:06] LABS: Anion Gap 14 mmol/L (10-20); BUN (Urea Nitrogen) 14 mg/dL (9.8-20.1); Calc. Creatinine Clearance 117 mL/min (70-130); Calcium 8.6 mg/dL (7.8-10.44); Carbon Dioxide 24 mmol/L (23-31); Chloride 98 mmol/L (98-107); Estimated GFR 100; Glucose 104 mg/dL (80-115); Potassium 3.7 mmol/L (3.5-5.1); Sodium 132 mmol/L (136-145)
[2023-05-18] MEDS: Senokot S 8.6-50 MG TAB PO SCH ×2 (08:08→19:20)
[2023-05-18] MEDS: Amlodipine 5 MG TAB PO SCH (08:08)
[2023-05-18] MEDS: Famotidine 20 MG TAB PO SCH ×2 (08:08→19:21)
[2023-05-18] MEDS: levETIRAcetam 500 MG TAB PO SCH ×2 (08:08→19:21)
[2023-05-18] MEDS: Polyethylene Glycol 3350 17 GM Packet PER TUBE SCH ×2 (08:08→08:13)
[2023-05-19] MEDS: Levothyroxine 150 MCG TAB PO SCH (05:42)
[2023-05-19 06:15] LABS: Anion Gap 14 mmol/L (10-20); BUN (Urea Nitrogen) 10 mg/dL (9.8-20.1); Calc. Creatinine Clearance 113 mL/min (70-130); Calcium 8.7 mg/dL (7.8-10.44); Carbon Dioxide 23 mmol/L (23-31); Chloride 99 mmol/L (98-107); Estimated GFR 100; Glucose 100 mg/dL (80-115); Potassium 3.7 mmol/L (3.5-5.1); Sodium 132 mmol/L (136-145)
[2023-05-19] MEDS: Polyethylene Glycol 3350 17 GM Packet PER TUBE SCH (07:44)
[2023-05-19] MEDS: Senokot S 8.6-50 MG TAB PO SCH ×2 (07:44→21:08)
[2023-05-19] MEDS: Amlodipine 5 MG TAB PO SCH (07:46)
[2023-05-19] MEDS: levETIRAcetam 500 MG TAB PO SCH ×2 (07:46→21:07)
[2023-05-19] MEDS: Famotidine 20 MG TAB PO SCH ×2 (07:47→21:04)
[2023-05-20] MEDS: Levothyroxine 150 MCG TAB PO SCH (04:57)
[2023-05-20] MEDS: Sodium Chloride 1 GM TAB PO SCH ×3 (08:42→21:05)
[2023-05-20] MEDS: levETIRAcetam 500 MG TAB PO SCH ×2 (08:42→21:05)
[2023-05-20] MEDS: Amlodipine 5 MG TAB PO SCH (08:42)
[2023-05-20] MEDS: Senokot S 8.6-50 MG TAB PO SCH ×2 (08:42→21:06)
[2023-05-20] MEDS: Polyethylene Glycol 3350 17 GM Packet PER TUBE SCH (08:42)
[2023-05-21] MEDS: Levothyroxine 150 MCG TAB PO SCH (05:35)
[2023-05-21 07:17] LABS: Anion Gap 15 mmol/L (10-20); BUN (Urea Nitrogen) 14 mg/dL (9.8-20.1); Calc. Creatinine Clearance 106 mL/min (70-130); Calcium 9.2 mg/dL (7.8-10.44); Carbon Dioxide 23 mmol/L (23-31); Chloride 99 mmol/L (98-107); Estimated GFR 98; Glucose 98 mg/dL (80-115); Potassium 3.9 mmol/L (3.5-5.1); Sodium 133 mmol/L (136-145)
[2023-05-21] MEDS: Polyethylene Glycol 3350 17 GM Packet PER TUBE SCH (08:55)
[2023-05-21] MEDS: Senokot S 8.6-50 MG TAB PO SCH ×2 (08:56→20:50)
[2023-05-21] MEDS: Sodium Chloride 1 GM TAB PO SCH ×3 (09:51→20:49)
[2023-05-21] MEDS: Amlodipine 5 MG TAB PO SCH (09:51)
[2023-05-21] MEDS: levETIRAcetam 500 MG TAB PO SCH ×2 (09:51→20:49)
[2023-05-22] MEDS: Levothyroxine 150 MCG TAB PO SCH (05:55)
[2023-05-22] MEDS: Polyethylene Glycol 3350 17 GM Packet PER TUBE SCH (09:02)
[2023-05-22] MEDS: Senokot S 8.6-50 MG TAB PO SCH ×2 (09:09→21:12)
[2023-05-22] MEDS: levETIRAcetam 500 MG TAB PO SCH ×2 (09:09→21:12)
[2023-05-22] MEDS: Amlodipine 5 MG TAB PO SCH (09:10)
[2023-05-22] MEDS: Sodium Chloride 1 GM TAB PO SCH ×3 (09:10→21:12)
[2023-05-23] MEDS: Levothyroxine 150 MCG TAB PO SCH (06:01)
[2023-05-23 06:10] LABS: Platelet Count 583 10x3/uL (130-400)
[2023-05-23] MEDS: Amlodipine 5 MG TAB PO SCH (09:51)
[2023-05-23] MEDS: Polyethylene Glycol 3350 17 GM Packet PER TUBE SCH (09:51)
[2023-05-23] MEDS: Senokot S 8.6-50 MG TAB PO SCH ×2 (09:51→20:29)
[2023-05-23] MEDS: Sodium Chloride 1 GM TAB PO SCH ×3 (09:51→20:28)
[2023-05-23] MEDS: levETIRAcetam 500 MG TAB PO SCH ×2 (09:51→20:28)
[2023-05-24] MEDS: Levothyroxine 150 MCG TAB PO SCH (05:15)
[2023-05-24] MEDS: levETIRAcetam 500 MG TAB PO SCH ×2 (09:10→21:23)
[2023-05-24] MEDS: Sodium Chloride 1 GM TAB PO SCH ×3 (09:10→21:23)
[2023-05-24] MEDS: Senokot S 8.6-50 MG TAB PO SCH ×2 (09:10→21:23)
[2023-05-24] MEDS: Amlodipine 5 MG TAB PO SCH (09:11)
[2023-05-24] MEDS: Polyethylene Glycol 3350 17 GM Packet PER TUBE SCH (09:16)
[2023-05-25] MEDS: Levothyroxine 150 MCG TAB PO SCH (05:53)
[2023-05-25] MEDS: levETIRAcetam 500 MG TAB PO SCH ×2 (08:39→20:11)
[2023-05-25] MEDS: Amlodipine 5 MG TAB PO SCH (08:39)
[2023-05-25] MEDS: Sodium Chloride 1 GM TAB PO SCH ×3 (08:39→20:11)
[2023-05-25] MEDS: Senokot S 8.6-50 MG TAB PO SCH ×2 (08:40→20:12)
[2023-05-25] MEDS: Polyethylene Glycol 3350 17 GM Packet PER TUBE SCH (08:40)
[2023-05-25] MEDS ORDERED: Acetaminophen 325 MG/10.15 ML UDCUP PO SCH (08:45)
[2023-05-25] MEDS: traMADol HCl 50 MG TAB PO SCH ×4 (08:52→20:12)
[2023-05-25] MEDS: Acetaminophen 325 MG TAB PO SCH ×4 (08:52→20:13)
[2023-05-26] MEDS: Levothyroxine 150 MCG TAB PO SCH (06:15)
[2023-05-26] MEDS: Acetaminophen 325 MG TAB PO SCH ×4 (06:17→20:10)
[2023-05-26] MEDS: traMADol HCl 50 MG TAB PO SCH ×4 (06:18→20:10)
[2023-05-26] MEDS: Sodium Chloride 1 GM TAB PO SCH ×3 (09:14→20:11)
[2023-05-26] MEDS: Senokot S 8.6-50 MG TAB PO SCH ×2 (09:14→20:10)
[2023-05-26] MEDS: Polyethylene Glycol 3350 17 GM Packet PER TUBE SCH (09:14)
[2023-05-26] MEDS: Amlodipine 5 MG TAB PO SCH (09:14)
[2023-05-26] MEDS: levETIRAcetam 500 MG TAB PO SCH ×2 (09:14→20:11)
[2023-05-27] MEDS: Acetaminophen 325 MG TAB PO SCH ×4 (03:57→20:30)
[2023-05-27] MEDS: traMADol HCl 50 MG TAB PO SCH ×4 (03:58→20:29)
[2023-05-27] MEDS: Levothyroxine 150 MCG TAB PO SCH (05:17)
[2023-05-27] MEDS: levETIRAcetam 500 MG TAB PO SCH ×2 (08:48→20:29)
[2023-05-27] MEDS: Amlodipine 5 MG TAB PO SCH (08:48)
[2023-05-27] MEDS: Polyethylene Glycol 3350 17 GM Packet PER TUBE SCH (08:48)
[2023-05-27] MEDS: Sodium Chloride 1 GM TAB PO SCH ×3 (08:49→20:29)
[2023-05-27] MEDS: Senokot S 8.6-50 MG TAB PO SCH ×2 (08:49→20:29)
[2023-05-27 09:21] LABS: Anion Gap 14 mmol/L (10-20); BUN (Urea Nitrogen) 14 mg/dL (9.8-20.1); Calc. Creatinine Clearance 90 mL/min (70-130); Calcium 9.5 mg/dL (7.8-10.44); Carbon Dioxide 23 mmol/L (23-31); Chloride 102 mmol/L (98-107); Estimated GFR 96; Glucose 95 mg/dL (80-115); Potassium 4.1 mmol/L (3.5-5.1); Sodium 135 mmol/L (136-145)
[2023-05-27 14:09] VITALS: BMI 24.8
[2023-05-28] MEDS: traMADol HCl 50 MG TAB PO SCH ×4 (03:57→21:31)
[2023-05-28] MEDS: Acetaminophen 325 MG TAB PO SCH ×4 (03:57→21:31)
[2023-05-28] MEDS: Levothyroxine 150 MCG TAB PO SCH (05:52)
[2023-05-28] MEDS: Polyethylene Glycol 3350 17 GM Packet PER TUBE SCH (09:21)
[2023-05-28] MEDS: Sodium Chloride 1 GM TAB PO SCH ×3 (09:22→21:29)
[2023-05-28] MEDS: levETIRAcetam 500 MG TAB PO SCH ×2 (09:22→21:31)
[2023-05-28] MEDS: Senokot S 8.6-50 MG TAB PO SCH ×2 (09:22→21:30)
[2023-05-28] MEDS: Amlodipine 5 MG TAB PO SCH (09:22)
[2023-05-29] MEDS: Acetaminophen 325 MG TAB PO SCH ×4 (04:03→21:58)
[2023-05-29] MEDS: traMADol HCl 50 MG TAB PO SCH ×4 (04:03→21:57)
[2023-05-29] MEDS: Levothyroxine 150 MCG TAB PO SCH (06:19)
[2023-05-29 08:31] LABS: ALT (SGPT) 19 U/L (8-55); AST (SGOT) 35 U/L (5-34); Albumin 3.6 g/dL (3.4-4.8); Alkaline Phosphatase 64 U/L (40-110); BUN (Urea Nitrogen) 12 mg/dL (9.8-20.1); Bilirubin, Total 0.3 mg/dL (0.2-1.2); Calc. Creatinine Clearance 93 mL/min (70-130); Calcium 9.3 mg/dL (7.8-10.44); Carbon Dioxide 16 mmol/L (23-31); Chloride 102 mmol/L (98-107); Estimated GFR 96; Globulin 3.9 g/dL (2.4-3.5); Glucose 92 mg/dL (80-115); Potassium 5.3 mmol/L (3.5-5.1); Protein, Total 7.5 g/dL (5.8-8.1); Sodium 132 mmol/L (136-145)
[2023-05-29 08:37] LABS: Anion Gap 19 mmol/L (10-20)
[2023-05-29] MEDS: levETIRAcetam 500 MG TAB PO SCH ×2 (08:43→21:56)
[2023-05-29] MEDS: Senokot S 8.6-50 MG TAB PO SCH ×2 (08:43→21:56)
[2023-05-29] MEDS: Sodium Chloride 1 GM TAB PO SCH ×3 (08:43→21:56)
[2023-05-29] MEDS: Polyethylene Glycol 3350 17 GM Packet PER TUBE SCH (08:44)
[2023-05-29] MEDS: Amlodipine 5 MG TAB PO SCH (09:00)
[2023-05-29] MEDS ORDERED: Iopamidol 370 76% 100 ML VIAL ONE (09:06)
[2023-05-29] MEDS ORDERED: Lidocaine 1% (PF) 30 ML VIAL ONE (09:48)
[2023-05-29 11:58] LABS: #Eosinphils 0.1 thou/uL (0.0-0.7); #Monocytes 0.8 thou/uL (0.11-0.59); #Neutrophils 4.6 thou/uL (1.40-6.50); %Basophils 0.5 % (0.0-1.0); %Lymphocytes 14.6 % (21.0-51.0); %Monocytes 12.2 % (0.0-10.0); %Neutrophils 70.2 % (42.0-75.0); Hematocrit 34.6 % (36.0-47.0); Hemoglobin 11.1 g/dL (12.0-16.0); Mean Corpuscular HGB CONC 32.1 g/dL (32.0-36.0); Mean Corpuscular Hemoglobin 26.4 pg (27.0-31.0); Mean Corpuscular Volume 82.4 fl (78.0-98.0); Mean Platelet Volume 8.4 fL (7.4-10.4); Platelet Count 313 10x3/uL (130-400); RBC Distribution Width 20.1 % (11.5-14.5); White Blood Cell (WBC) Count 6.6 10x3/uL (4.8-10.8)
[2023-05-30] MEDS: traMADol HCl 50 MG TAB PO SCH ×3 (03:28→15:48)
[2023-05-30] MEDS: Acetaminophen 325 MG TAB PO SCH ×3 (03:29→15:48)
[2023-05-30] MEDS: Levothyroxine 150 MCG TAB PO SCH (05:51)
[2023-05-30 08:01] LABS: Potassium 3.7 mmol/L (3.5-5.1)
[2023-05-30] MEDS ORDERED: Magnesium 2 GM/50 ML(in water) 2 GM in Premix Bag 1 BAG IVPB SCH (09:00)
[2023-05-30] MEDS: levETIRAcetam 500 MG TAB PO SCH (09:13)
[2023-05-30] MEDS: Sodium Chloride 1 GM TAB PO SCH ×2 (09:14→15:48)
[2023-05-30] MEDS: Amlodipine 5 MG TAB PO SCH (09:14)
[2023-05-30] MEDS: Polyethylene Glycol 3350 17 GM Packet PER TUBE SCH (09:15)
[2023-05-30] MEDS: Senokot S 8.6-50 MG TAB PO SCH (09:15)
[2023-05-30 15:38] VITALS: BP 106/72; TEMP 97.7
== END 2023-05-30 17:00 | DRG 82 ==
LOC: ERS 18:29 → CCU 19:07 → SURG A 05-17 16:13
PROVIDERS: ADMIT Surgery; ATTEND Surgery
PROC: 4A103BD Monitoring of Intracranial Pressure, Percutaneous Approach (ICD-10-PCS; principal; 2023-05-03)
PROC: 4A133R1 Monitoring of Arterial Saturation, Peripheral, Percutaneous Approach (ICD-10-PCS; 2023-05-03)
PROC: 30233J1 Transfusion of Nonautologous Serum Albumin into Peripheral Vein, Percutaneous Approach (ICD-10-PCS; 2023-05-03)
PROC: 5A1955Z Respiratory Ventilation, Greater than 96 Consecutive Hours (ICD-10-PCS; 2023-05-03)
PROC: 0BH17EZ Insertion of Endotracheal Airway into Trachea, Via Natural or Artificial Opening (ICD-10-PCS; 2023-05-03)
PROC: 05H633Z Insertion of Infusion Device into Left Subclavian Vein, Percutaneous Approach (ICD-10-PCS; 2023-05-04)
PROC: 06H03DZ Insertion of Intraluminal Device into Inferior Vena Cava, Percutaneous Approach (ICD-10-PCS; 2023-05-04)
PROC: 3E033XZ Introduction of Vasopressor into Peripheral Vein, Percutaneous Approach (ICD-10-PCS; 2023-05-04)
PROC: B5191ZZ Fluoroscopy of Inferior Vena Cava using Low Osmolar Contrast (ICD-10-PCS; 2023-05-10)
PROC: 30233N1 Transfusion of Nonautologous Red Blood Cells into Peripheral Vein, Percutaneous Approach (ICD-10-PCS; 2023-05-10)
PROC: 06PY3DZ Removal of Intraluminal Device from Lower Vein, Percutaneous Approach (ICD-10-PCS; 2023-05-29)
DX: S06.6XAA Traumatic subarachnoid hemorrhage with loss of consciousness status unknown, initial encounter (principal); G93.41 Metabolic encephalopathy; J96.01 Acute respiratory failure with hypoxia; U07.1 COVID-19; S22.31XA Fracture of one rib, right side, initial encounter for closed fracture; E87.1 Hypo-osmolality and hyponatremia; I82.412 Acute embolism and thrombosis of left femoral vein; S06.5XAA Traumatic subdural hemorrhage with loss of consciousness status unknown, initial encounter; R40.20 Unspecified coma; Z51.5 Encounter for palliative care; S01.01XA Laceration without foreign body of scalp, initial encounter; E87.6 Hypokalemia; E83.39 Other disorders of phosphorus metabolism; I10 Essential (primary) hypertension; E03.9 Hypothyroidism, unspecified; E83.51 Hypocalcemia; R56.9 Unspecified convulsions; R13.10 Dysphagia, unspecified; D50.9 Iron deficiency anemia, unspecified; Z78.1 Physical restraint status
CPT/HCPCS: 36415; 36416; 36430; 36600; 37191; 37193; 70450; 70496; 70498; 71045; 71260; 72170; 74177; 80048; 80053; 80306; 80307; 81001; 82533; 82805; 83605; 83735; 83880; 83930; 83935; 84100; 84132; 84146; 84300; 84443; 85014; 85018; 85025; 85049; 85610; 85730; 86850; 86900; 86901; 87040; 87086; 93005; 93970; 94002; 94003; 95816; 95819; 95957; C1769; C1773; C1880; C1894; G0390; J0360; J0461; J1650; J1720; J1815; J1940; J1953; J2001; J2060; J2272; J2704; J3010; J3475; J3480; J3490; J7030; J7050; J7070; J7131; P9016; P9045; Q9967; S0028